=== PATIENT | male | born 1990 | race Caucasian/White ===

== ENCOUNTER 2018-01-13 14:59 | Emergency (ER) | payer SELFPAY ==
[2018-01-13 19:39] VITALS: BP 107/69
[2018-01-13] MEDS ORDERED: LET TOPICAL TP ONE (20:12)
[2018-01-13] MEDS ORDERED: XYLOCAINE 1% 20 mL INFILTRATI ONE (20:12)
--- NOTE | 2018-01-13 21:21 | Emergency Department Report ---
ED General Adult HPI - General Chief complaint: Medical Clearance Stated complaint: ABD PAIN/BLEEDING Time Seen by Provider: 01/13/18 20:12 Source: patient Mode of arrival: Ambulatory Limitations: Language Barrier - History of Present Illness Initial comments: Patient is a 28-year-old male who has a friend here as an materials manager who is presenting with anal pain for the past week. Patient states he has a large hemorrhoid that is been constantly bleeding. Patient was sent from an urgent care to the emergency department for further management. Patient denies any fevers and has not been straining to have bowel movements. Severity scale (0 -10): 6 Quality: burning - Related Data Previous Rx's Medication Instructions Recorded Last Taken Type Docusate Sodium [Colace] 100 mg PO BID #30 capsule 01/13/18 Unknown Rx HYDROcodone/APAP 5-325 [Couch 1 each PO Q4HR PRN #12 tablet 01/13/18 Unknown Rx 5/325] Hydrocortisone [Anusol-Hc] 1 applic RC TID #30 cream..g. 01/13/18 Unknown Rx Allergies Allergy/AdvReac Type Severity Reaction Status Date / Time No Known Allergies Allergy Unverified 01/13/18 15:21 ED Review of Systems ROS: Stated complaint: ABD PAIN/BLEEDING Other details as noted in HPI Comment: All other systems reviewed and negative ED Past Medical Hx - Past Medical History Previous Medical History?: No - Surgical History Past Surgical History?: No - Social History Smoking Status: Never Smoker Substance Use Type: None - Medications Home Medications: Home Medications Medication Instructions Recorded Confirmed Last Taken Type Docusate Sodium [Colace] 100 mg PO BID #30 capsule 01/13/18 Unknown Rx HYDROcodone/APAP 5-325 [Couch 1 each PO Q4HR PRN #12 tablet 01/13/18 Unknown Rx 5/325] Hydrocortisone [Anusol-Hc] 1 applic RC TID #30 cream..g. 01/13/18 Unknown Rx ED Physical Exam - General Limitations: Language Barrier General appearance: alert, in no apparent distress - Head Head exam: Present: atraumatic, normocephalic - Eye Eye exam: Present: normal appearance - ENT ENT exam: Present: mucous membranes moist - Neck Neck exam: Present: normal inspection - Respiratory Respiratory exam: Present: normal lung sounds bilaterally. Absent: respiratory distress, wheezes, rales - Cardiovascular Cardiovascular Exam: Present: regular rate, normal rhythm. Absent: systolic murmur, diastolic murmur, rubs, gallop - GI/Abdominal GI/Abdominal exam: Present: soft, normal bowel sounds - Rectal Rectal exam: Present: deferred - External exam: Present: other (patient has a large thrombosed external hemorrhoid present) - Extremities Exam Extremities exam: Present: normal inspection - Back Exam Back exam: Present: normal inspection - Neurological Exam Neurological exam: Present: alert, oriented X3 - Psychiatric Psychiatric exam: Present: normal affect, normal mood - Skin Skin exam: Present: warm, dry, intact, normal color. Absent: rash ED Course Vital Signs 01/13/18 01/13/18 15:21 19:37 Temperature 99.2 F 98.2 F Pulse Rate 78 71 Respiratory 18 18 Rate Blood Pressure 122/74 107/69 O2 Sat by Pulse 99 100 Oximetry - I & D Rectum Type of Procedure: Simple Site: he has a thrombosed external hemorrhoid present Blade Size: 11 I & D Procedure: betadine prep, sterile drapes applied Progress: Hemorrhoid was incised and elliptical fashion. This was done after giving the patient some LET and 2 mL of 1% lidocaine. The clot was removed with hemostats patient tolerated procedure well. Critical care attestation.: If time is entered above; I have spent that time in minutes in the direct care of this critically ill patient, excluding procedure time. ED Disposition Clinical Impression: Thrombosed hemorrhoids Disposition: DC-01 TO HOME OR SELFCARE Is pt being admited?: No Does the pt Need Aspirin: No Condition: Stable Instructions: Hemorrhoids (ED) Referrals: JAMIN GUERRERO MD [Staff Physician] - 3-5 Days Time of Disposition: 21:21
== END 2018-01-13 21:30 | disposition home or self-care (01) ==
LOC: ED 14:59
DX: K64.5 Perianal venous thrombosis (principal)
CPT/HCPCS: 99282